=== PATIENT | female | born 1970 | race Caucasian/White ===

== ENCOUNTER 2019-12-06 19:55 | Emergency (ER) | payer OTHER ==
[~2019-12-06] VITALS: Ht 162.6 cm; Wt 114.3 kg
[2019-12-06 20:02] VITALS: BP_SYST 169
--- NOTE | 2019-12-06 20:09 | NUR ---
Patient triaged and placed in waiting room. VSS and patient appears in no acute distress at this time. Accompanied by boyfriend, awaiting available bed, and MD notified of need for MSE.
[2019-12-06 21:19] LABS: BASOPHILS # (AUTO) 0.1 K/uL (0.0-0.2); BASOPHILS % (AUTO) 0.3 % (0.0-2.0); EOSINOPHILS % (AUTO) 0.2 % (0.0-4.0); HEMATOCRIT 40.8 % (36-48); HEMOGLOBIN 13.2 g/dL (12.0-16.0); LYMPHOCYTES # (AUTO) 0.9 K/uL (1.0-5.5); LYMPHOCYTES % (AUTO) 4.3 % (20.5-51.5); MEAN CORPUSCULAR HEMOGLOBIN 26 pg (27-31); MEAN CORPUSCULAR HGB CONC 32 % (32-36); MEAN CORPUSCULAR VOLUME 81 fL (79.0-98.0); MONOCYTES % (AUTO) 4.9 % (1.7-9.3); NEUTROPHILS # (AUTO) 19.4 K/uL (1.8-7.7); NEUTROPHILS % (AUTO) 90.3 % (40.0-70.0); PLATELET COUNT (AUTO) 395 K/uL (130-430); RED BLOOD CELL COUNT(AUTO) 5.04 MIL/uL (4.2-6.2); WHITE BLOOD COUNT (AUTO) 21.5 K/uL (4.8-10.8)
[2019-12-06 21:36] LABS: CALCIUM 9.3 mg/dL (8.4-11.0); CREATININE 0.6 mg/dL (0.55-1.30)
[2019-12-06 21:41] LABS: ALBUMIN 3.6 g/dL (3.4-4.8); TOTAL BILIRUBIN 0.8 mg/dL (0.0-1.0)
--- NOTE | 2019-12-06 22:09 | NUR ---
Patient is in car per , he does not want to get her for repeat vitals.
--- NOTE | 2019-12-06 22:40 | NUR ---
Placed in room 07 . Placed on general labor forklift operator, blood pressure machine and pulse oximeter. To gown for exam. Side rails up.
--- NOTE | 2019-12-06 22:43 | NUR ---
ER Dr. Wynne at bedside examining patient.
[2019-12-06] MEDS ORDERED: NACL 0.9% 1,000 ML IV ONE (22:46)
[2019-12-06] MEDS ORDERED: MORPHINE 4 MG/ML INJ. SYRINGE IVP ONE (23:00)
[2019-12-06] MEDS ORDERED: ONDANSETRON HCL 4 MG/2 ML VIAL IVP ONE (23:00)
--- NOTE | 2019-12-06 23:00 | NUR ---
ER Dr. Wynne at bedside examining patient.
[2019-12-06 23:15] LABS: AMYLASE 31 U/L (0-100); PROTHROMBIN TIME 9.9 SECS (9.5-12.5)
--- NOTE | 2019-12-06 23:15 | NUR ---
PT AAOx4 presents to ED via wheelchair c/o 05/14 abd pain x 2 days. +vomiting. Denies sob/cp. Pt reports she has hx of gallstones and was given morphine at her last visit. Skin pink dry and warm, breathing even and unlabored. no other injuries/complaints per pt/noted. Will continue to monitor.
[2019-12-06 23:28] LABS: BILIRUBIN,URINE NEGATIVE (NEGATIVE); BLOOD, URINE 1+ (NEGATIVE); CLARITY/URINE CLEAR (CLEAR); COLOR,URINE YELLOW (YELLOW); GLUCOSE,URINE NEGATIVE (NEGATIVE); KETONES,URINE 3+ (NEGATIVE); LEUKOCYTE ESTERASE ,URINE NEGATIVE (NEGATIVE); NITRITE, URINE NEGATIVE (NEGATIVE); PH,URINE 6.5 (5.0-8.0); PROTEIN URINE 1+ (NEGATIVE)
[2019-12-06 23:36] LABS: BACTERIA,URINE FEW /HPF (None Seen); WBC,URINE 0-3 /HPF (0-3)
--- NOTE | 2019-12-06 23:42 | NUR ---
Pt returned from ultrasound in stable condition
[2019-12-07] MEDS ORDERED: cefTRIAXone 1 GM IVPB PREMIX 50 ML IV ONE (00:15)
--- NOTE | 2019-12-07 01:00 | NUR ---
Pt laying in bed comfortably with no signs of distress
--- NOTE | 2019-12-07 03:03 | NUR ---
Awaiting bed assignment per [facility]
--- NOTE | 2019-12-07 03:38 | NUR ---
Patient to be transferred to [facility]. Is being transferred due to higher level of care. Receiving facility has accepting physician and available space. ER physician has signed transfer form. Patient or responsible alliance party has agreed to transfer and signed form. Patient belongings inventoried and will be sent with patient. Copy of nursing notes, lab reports, EKG, Physicians Orders and X-rays to be sent with patient. Report called to Nehal GILLIAM at receiving facility. Receiving physician is Dr. Cruz. Ambulance service has been called for transfer. ETA is [id number].
--- NOTE | 2019-12-07 03:57 | NUR ---
Report given to Kamari GILLIAM
[2019-12-07 04:32] VITALS: BP_SYST 160
--- NOTE | 2019-12-07 04:32 | NUR ---
Patient to be transferred to [facility]. Is being transferred due to higher level of care. Receiving facility has accepting physician and available space. ER physician has signed transfer form. Patient or responsible constitution party has agreed to transfer and signed form. Patient belongings inventoried and will be sent with patient. Copy of nursing notes, lab reports, EKG, Physicians Orders and X-rays to be sent with patient. Report called to Nehal at receiving facility. Receiving physician is Dr. Cruz. [facility] ambulance service has been called for transfer
== END 2019-12-07 04:32 | disposition short-term general hospital (02) ==
LOC: SED 19:55
DX: K80.20 Calculus of gallbladder without cholecystitis without obstruction (principal); R10.11 Right upper quadrant pain; E86.0 Dehydration; I10 Essential (primary) hypertension; R11.2 Nausea with vomiting, unspecified
CPT/HCPCS: 36415; 76700; 80053; 81000; 82150; 82550; 83605; 83690; 84484; 85025; 85610; 85730; 87040; 93005; 96361; 96365; 96375; 99285; J0696; J2270; J2405; J7030